=== PATIENT | male | born 1935 | race Caucasian/White ===

== ENCOUNTER 2018-03-16 07:59 | Outpatient (CLI) | payer MEDICARE, OTHER ==
[~2018-03-16] VITALS: Ht 180.3 cm; Wt 90.9 kg
--- NOTE | ~2018-03-16 | HEMODYNAMI ---
PATIENT:CHADD BROOKE JR MEDICAL RECORD: [id number] : 31 LOCATION:[facility] ADMISSION DATE: 03/16/18 Generatedon:03/16/201811:37 Patient name: CHADD BROOKE Patient #: [id number] SSN: [id number] : 1935 Date of study: 03/16/2018 Page: Of Hemodynamic Procedure Report Patient Data Patient Demographics Procedure consent was obtained First Name: CHADD Gender: Male Last Name: EDWARDO Suffix: [facility] Initial: B : 1935 Patient #: [id number] Age: 82 year(s) Race: SSN: [id number] Additional ID: [id number] Contact details Address: [address] [place] [address] State: [place] City: [place] Zip code: [address] Past Medical History Allergies Allergen Reaction Date Comments Reported Other allergy 03/16/2018 Morphine, Sulfa, Iodine Admission Admission Data Admission Date: 03/16/2018 Admission Time: 7:59 Arrival Date: 03/16/2018 Arrival Time: 10:00 Admit Source: Other Insurance Payor: Medicare Height (in.): 73 BSA: 2.15 (m2) Height (cm.): 185.42 BMI: 26.25 (kg/m2) Weight (lbs.): 199 Weight (kg.): 90.26 Lab Results Lab Result Date: 03/16/2018 Lab Result Time: 9:00 Biochemistry Name Units Result Min Max BUN mg/dl 36 --(----)-* 7 18 Creatinine mg/dl 2.5 --(----)-* 0.6 1.3 CBC Name Units Result Min Max Hematocrit % 37.9 *-(----)-- 42 54 Hemoglobin g/dl 11.5 *-(----)-- 13.5 17.5 Procedure Procedure Types Cath Procedure Diagnostic Procedure PPM/ICD PPM Dual Implant Sedation Charges Moderate Sedation up to 15 minutes Procedure Description Procedure Date Procedure Date: 03/16/2018 Procedure Start Time: 11:36 Procedure Staff Name Function Roman Hernandez MD Performing Physician Randy Lowery RT Monitor Ankita Zavala RT Scrub Sean Murillo RN Nurse Procedure Data Cath Procedure Fluoroscopy Diagnostic fluoroscopy Total fluoroscopy Time: 3.2 time: 3.2 min min Diagnostic fluoroscopy Total fluoroscopy dose: dose: 127.03 mGy 127.03 mGy Contrast Material Contrast Material Type Amount (ml) Visipaque 270 10 Estimated blood loss: 5 ml Procedure Complications No complications Procedure Medications Medication Administration Route Dosage Oxygen NC 2 l/min Lidocaine 1% added to field 20 Ancef (1Gm/50ml NS) I.V.P.B 1 g Ancef Irrigation Topical 1 g (1gm/500ml NS) Versed I.V. 2 mg Fentanyl I.V. 50 mcg Versed I.V. 1 mg Fentanyl I.V. 50 mcg Hemodynamics Rest BSA: 2.15 (m2) HGB: 11.5 (g/dl) O2 Consumption: Estimated: 235.47 (ml/min) O2 Co nsumption indexed: Estimated:109.52 (ml/min/m) Heart Rate: 59 (bpm) Snapshots Pre Cath Intra NCS Post Cath Vital Signs Time Heart Resp SPO2 etCO2 NIBP (mmHg) Rhythm Pain Sedation Rate (ipm) (%) (mmHg) Status Level (bpm) 10:34:48 63 17 100 28.5 186/76(140) NSR 0 (11) 10(A) , No pain 10:39:37 61 16 100 12 175/71(133) NSR 0 (11) 10(A) , No pain 10:44:20 60 15 100 15 138/66(114) NSR 0 (11) 10(A) , No pain 10:50:04 62 14 99 9.7 154/65(114) NSR 0 (11) 10(A) , No pain 10:54:44 65 17 98 155/66(119) NSR 0 (11) 10(A) , No pain 11:00:23 63 15 99 154/67(108) NSR 0 (11) 9(A) , No pain 11:05:01 59 17 98 146/58(113) NSR 0 (11) 9(A) , No pain 11:09:35 75 13 98 151/75(117) NSR 0 (11) 9(A) , No pain 11:14:10 76 14 96 151/73(120) NSR 0 (11) 9(A) , No pain 11:18:40 76 15 98 166/80(130) NSR 0 (11) 9(A) , No pain 11:23:25 59 12 99 162/66(120) NSR 0 (11) 10(A) , No pain 11:28:02 69 14 99 151/78(98) NSR 0 (11) 10(A) , No pain 11:32:34 73 13 99 166/82(106) NSR 0 (11) 10(A) , No pain Medications Time Medication Route Dose Verified Delivered Reason Notes Effectiv eness by by 10:42:12 Ancef I.V.P.B 1 g Roman Buffie used for (1Gm/50ml David Murillo surveillance manager NS) 10:45:51 Oxygen NC 2 Roman Buffie used for l/min David Murillo surveillance manager 10:46:02 Lidocaine added 20ml Roman Buffie for local 1% to vial David Murillo RN anesthetic field x2 MD 10:46:17 Ancef Topical 1 g Roman Buffie used for Irrigation Robertored Murillo surveillance manager (1gm/500ml MD NS) 10:49:32 Versed I.V. 2 mg Roman Buffie for Norred Murillo RN sedation 10:51:39 Fentanyl I.V. 50 Roman Buffie for mcg David Murillo RN sedation 10:57:31 Versed I.V. 1 mg Roman Buffie for Norred Murillo RN sedation 10:57:36 Fentanyl I.V. 50 Roman Buffie for mcg Norred Murillo RN sedation Procedure Log Time Note 10:12:12 Informed consent obtained and on chart 10:12:16 Admit Source: Other 10:13:44 Diagnostic Cath status Elective 10:13:46 Sean Murillo RN sent for patient. Start room use. 10:13:58 Time tracking: Regular hours (M-F 7:00 - 5:00) 10:14:05 Plan of Care:Hemodynamics will remain stable., Cardiac rhythm will remain stable., Comfort level will be maintained., Respiratory function will remain adequate., Patient/ family verbilizes understanding of procedure., Procedure tolerated without complication., Recovers from procedure without complications.. 10:17:51 Patient received from Pre/Post Procedure Room to CCL 3 Alert and oriented. Tansferred to table in Supine position. 10:17:52 Warm blankets applied, and piero hugger turned on for patient comfort. 10:17:52 Correct patient and procedure confirmed by team. 10:17:53 ECG and BP/O2 sat monitors applied to patient. 10:19:16 Patient Height : 73 inches 10:19:30 Patient Weight : 199 lbs 10:19:30 Insurance Payor : Medicare 10:19:33 Arrival Date: 03/16/2018 10:00:00 AM 10:33:14 Baseline sample Acquired. 10:33:14 Vital chart was started 10:33:27 Rhythm: sinus rhythm 10:33:38 Full Disclosure recording started 10:33:49 H&P Date Dictated: 03/15/2018 Within 30 days and on chart., H&P Addendum completed by physician on day of procedure. (MUST COMPLETE FOR ALL OUTPATIENTS). 10:33:49 Pre-procedure instructions explained to patient. 10:33:51 Pre-op teaching completed and patient verbalized understanding. 10:33:52 Family in waiting room. 10:33:53 Patient NPO since Midnight. 10:34:08 Patient allergic to Other allergyMorphine, Sulfa, Iodine 10:34:10 Is the patient allergic to Iodine/contrast media? Yes. 10:34:10 Was the patient premedicated? Yes 10:34:12 Is patient on blood thinner?No 10:34:13 Patient diabetic? No. 10:34:34 Previous problem with sedation/anesthesia? Yes Difficulty breathing 10:34:36 Snore? Yes 10:34:37 Sleep apnea? No 10:34:38 Deviated septum? No 10:34:39 Opens mouth fully? Yes 10:34:40 Sticks out tongue? Yes 10:34:44 Airway obstruction? Yes COPD 10:34:46 Dentures? No ? 10:34:54 Patient pain scale 0/10 ?. 10:34:57 IV patent on arrival in right hand with 0.9% NaCl at KVO. 10:35:04 IV started by Sean Murillo RN inleft antecubital with a 22 gauge IV catheter with 0.9% NaCl at KVO. 10:39:39 Lab Result : BUN 36 mg/dl 10:39:39 Lab Result : Hemoglobin 11.5 g/dl 10:39:39 Lab Result : Creatinine 2.5 mg/dl 10:39:39 Lab Result : Hematocrit 37.9 % 10:39:41 Lab results completed and on chart. 10:39:45 Left chest area was prepped with chlora-prep and draped in sterile fashion 10:39:58 Medtronic district representative Marshall Berry present for procedure. 10:40:08 Pre sharps counted by scrub and verified by RN: Sutures: 2; Sponges: 5; Stick needles: 4; Skin needles: 2; Blade: 1; Cautery: 1 10:40:11 Grounding pad site Right thigh. 10:40:15 Grounding pad site free from injury. 10:40:23 Use device set NORRED PPM 10:40:27 2-0 Vicryl Plus [id number] opened to sterile field. 10:40:27 2-0 Silk 685H opened to sterile field. 10:40:29 Cautery Tip Superintendent [employer] Power opened to sterile field. 10:40:30 Cautery Pushbutton Pencil opened to sterile field. 10:40:31 Stapler Skin 35W Proximate Plus (PMW35) opened to sterile field. 10:40:32 Tegaderm 4 x 4 (1626W) opened to sterile field. 10:40:34 MICROPUNCTURE 4FR Lecere ([id number]) opened to sterile field. 10:40:43 MICROPUNCTURE 4FR Lecere ([id number]) opened to sterile field. 10:41:01 Medtronic Advisa MRI PPM Dual Generator [id number] opened to sterile field. 10:41:20 Medtronic 4074-52 PPM Lead opened to sterile field. 10:41:21 Medtronic 5076-45 PPM Lead opened to sterile field. 10:41:30 Alarms reviewed by R. N. 10:41:31 Sharps counted by scrub and verified by R.N. 10:42:12 Ancef (1Gm/50ml NS) 1 g I.V.P.B was administered by Sean Murillo RN; used for procedure; 10:45:46 IV CATHETER 22g opened to sterile field. 10:45:51 Oxygen 2 l/min NC was administered by Sean Murillo RN; used for procedure; 10:46:02 Lidocaine 1% 20ml vial x2 added to field was administered by Sean Murillo RN; for local anesthetic; 10:46:17 Ancef Irrigation (1gm/500ml NS) 1 g Topical was administered by Sean Murillo RN; used for procedure; 10:47:45 Physician arrived 10:47:46 --------ALL STOP TIME OUT------ 10:47:46 Final Timeout: patient, procedure, and site verified with staff and physician. All members of the team are in agreement. 10:47:49 Left chest site verified by team. 10:47:52 Physical assessment completed. ASA score P 2 - A patient with mild systemic disease as per Roman Hernandez MD. 10:47:55 Sedation plan: IV Moderate Sedation Medication:Versed, Fentanyl 10:49:32 Versed 2 mg I.V. was administered by Sean Murillo RN; for sedation; 10:51:39 Fentanyl 50 mcg I.V. was administered by Sean Murillo RN; for sedation; 10:52:40 Procedure started. 10:52:40 Lidocaine 1% was administered to left subclavicular area by Roman Hernandez MD . 10:53:12 Incision made to left subclavicular area. 10:54:46 Generator pocket made/opened. 10:57:31 Versed 1 mg I.V. was administered by Sean Murillo RN; for sedation; 10:57:36 Fentanyl 50 mcg I.V. was administered by Sean Murillo RN; for sedation; 11:01:21 Access obtained with 4Fr micropunture. 11:01:30 Access obtained with 4Fr micropunture. 11:05:14 Left subclavian vein accessed with 7Fr Peel Away Sheath. 11:05:18 Left subclavian vein accessed with 7Fr Peel Away Sheath. 11:07:05 Ventricular lead inserted and advanced. 11:07:11 Ventricular lead positioned. 11:09:58 Ventricular lead tested. 11:10:40 Atrial lead inserted and advanced. 11:10:59 Atrial lead positioned. 11:11:04 Atrial lead tested. 11:19:47 Peel-a-way sheath was split and removed. 11:19:48 Peel-a-way sheath was split and removed. 11:20:06 Atrial lead attachment was completed with 2-0 silk. 11:20:08 Ventricular lead attachment was completed with 2-0 silk. 11:28:15 PPM Dual was inserted subcutaneously to left chest. ::28 Subcutaneous closure was completed with 2-0 vicryl. ::45 Skin closure was completed with 35mm [place]. 11:28:51 Procedure ended.(Physican Out) 11::42 Fluoroscopy time 03.20 minutes. 11::47 Flurop Dose total: 127.03 11::47 Fluoroscopy dose: 127.03 mGy 11:29:50 Contrast amount:Visipaque 270 10ml. 11:29:51 Sharps counted by scrub and verified by R.N. 11:30:36 Parameters-- Generator: Mode: DDDR. Lower Rate: 60bpm. Upper Rate: 110bpm. 11:30:59 Parameters--Atrial P/R Wave: ?mV. Current: ?mA; Threshold: ?V; Impedence: 651OHMS. 11:31:16 Parameters--Ventricular P/R Wave: 0.5mV. Current: 0.5mA; Threshold: 0.6V; Impedence: 1181OHMS. 11:31:20 Lt Chest incision was dressed with gauze eyepad and tegaderm. 11:31:38 Post left subclavian vein:stable, soft, clean and dry 11:31:39 Post Procedure Pulses reassessed and unchanged 11:31:41 Post-procedure physical assessment completed. ASA score P 2 - A patient with mild systemic disease as per Roman Hernandez MD. 11:31:45 Post procedure rhythm: paced 11:34:03 Estimated blood loss: 5 ml 11:34:04 Post procedure instruction explained to patient.Patient verbalizes understanding. 11:34:05 Patient needs reinforcement of post procedure teaching. 11:34:53 Procedure type changed to Cath procedure, Diagnostic procedure, PPM/ICD, PPM Dual Implant, Sedation Charges, Moderate Sedation up to 15 minutes 11:35:42 Procedure and supply charges have been captured, reviewed, submitted and are correct. 11:35:44 Procedure Complication : No complications 11:35:46 Vital chart was stopped 11:35:47 See physician's report for complete and final results. 11:35:48 Report given to Pre/Post Procedure Room. 11:35:50 Patient transfered to Pre/Post Procedure Room with Stretcher. 11:36:08 End room use (Document Last) Device Usage Item Name Manufacture Quantity Catalog Hospital Part Current [facility] Lot# / Serial# Number Charge Number Stock Stock Code 2-0 Vicryl Ethicon 1 [id number] [id number] 701803 784266 5 Plus [id number] 2-0 Silk 685H Ethicon 1 685H 035916 58104 [id number] 5 Cautery Tip Microtek 1 [id number] 338486 005723 896902 5 [employer] Cautery Microtek 1 [id number] 704946 97600 277989 5 Pushbutton [employer] Pencil Stapler Skin Unknown 1 PMW35 737462 626898 961150 5 35W Proximate Plus (PMW35) Tegaderm 4 x 3M 1 1626W 494268 765549 783984 5 4 (1626W) MICROPUNCTURE Lecere [facility] 2 [id number] 037124 336851 304393 5 4FR Lecere (W81698) Medtronic Medtronic 1 A2DR01 005024 499191 5 SN:[id number] Advisa MRI EXP:2019-05-20 PPM Dual Generator A2DR01 Medtronic Medtronic 1 4074-52 576345 [id number] 5 SN:[id number] 4074-52 PPM EXP:2019-10-14 Lead Medtronic Medtronic 1 5076-45 911068 [id number] 5 [id number] 5076-45 PPM EXP:2019-11-18 Lead IV CATHETER B. Wang 1 [id number] 225034 [id number] 781989 5 22g Signature Audit [place] Stage Time Signature Unsigned Intra-Procedure 03/16/2018 Randy Lowery 11:37:36 AM RT(R) Signatures Monitor : Randy Lowery RT Signature : Date : Time : [facility] [address] [place] [place] [address]
[2018-03-16 09:05] LABS: HEMATOCRIT 37.9 % (42.0-54.0); HEMOGLOBIN 11.5 g/dL (13.5-17.5); MCH 31.1 pg (26.0-34.0); MCHC 30.3 g/dL (31.0-37.0); MCV 102.4 fL (80.0-100.0); MEAN PLATELET VOLUME 10.6 fL (7.4-10.4); RBC 3.7 10x6/uL (4.20-6.10); RDW 15.2 % (11.5-14.5); WBC 6.2 10x3/uL (4.8-10.8)
[2018-03-16 09:12] LABS: ANION GAP 13.7 mmol/L (8-16); CALCIUM 8.6 mg/dL (8.5-10.1); CARBON DIOXIDE 23.1 mmol/L (21.0-32.0); CREATININE - SERUM 2.5 mg/dL (0.6-1.3); POTASSIUM - SERUM 5.8 mmol/L (3.5-5.1)
[2018-03-16 09:14] VITALS: BP 156/53; Ht 180.3 cm; Wt 90.9 kg
[2018-03-16] MEDS ORDERED: ZYRTEC10 MG PO (09:35)
[2018-03-16] MEDS ORDERED: WELLBUTRIN XL150 M1 PO (09:35)
[2018-03-16] MEDS ORDERED: LEVOXYL75 MCG PO (09:36)
[2018-03-16] MEDS ORDERED: LISINOPRIL-HCTZ1 T13 PO (09:37)
[2018-03-16] MEDS ORDERED: FLOMAX0.4 MG PO (09:38)
[2018-03-16] MEDS ORDERED: LIPITOR40 MG PO (09:38)
[2018-03-16] MEDS ORDERED: ARICEPT23 MG PO (09:38)
[2018-03-16] MEDS ORDERED: ADVAIR 250/501 DISK INH (09:39)
[2018-03-16] MEDS ORDERED: STOOL SOFTENER100 M1 PO (09:39)
[2018-03-16] MEDS ORDERED: HYDROCODONE-APA1 TAB PO (09:39)
[2018-03-16] MEDS ORDERED: IBUPROFEN200 MG (09:39)
[2018-03-16] MEDS ORDERED: XALATAN 0.0052.5 ML EACH EYE (09:39)
[2018-03-16] MEDS ORDERED: FOLBIC RF TABL1 EACH PO (09:40)
[2018-03-16] MEDS ORDERED: MELATONIN10 M1 PO (09:40)
[2018-03-16] MEDS ORDERED: XANAX0.5 MG PO (09:40)
[2018-03-16] MEDS ORDERED: BAYER CHEWABLE81 MG PO (09:40)
[2018-03-16 09:59] LABS: APTT 37.4 SECONDS (22.8-39.4); INR 1.07 (0.85-1.17); PROTIME 13.5 SECONDS (11.6-15.0)
[2018-03-16] MEDS ORDERED: ELIQUIS5 MG PO (11:35)
[2018-03-16] MEDS ORDERED: KEFLEX500 MG PO (11:35)
[2018-03-16] MEDS ORDERED: COUMADIN5 MG PO (12:02)
== END 2018-03-16 17:00 | disposition home or self-care (01) ==
LOC: D.CATH 07:59
PROVIDERS: Internal Medicine Cardiovascular Disease
DX: I44.2 Atrioventricular block, complete (principal); I10 Essential (primary) hypertension; E78.5 Hyperlipidemia, unspecified; I48.91 Unspecified atrial fibrillation; Z01.812 Encounter for preprocedural laboratory examination

== ENCOUNTER 2018-04-04 09:59 | Inpatient (IN) | payer MEDICARE, OTHER ==
[~2018-04-04] VITALS: Ht 180.3 cm; Wt 90.9 kg
--- NOTE | ~2018-04-04 | DS ---
PATIENT:CHADD BROOKE JR :31 MEDICAL RECORD: [id number] DISCHARGE SUMMARY ADMISSION DATE: 04/04/18 DISCHARGE DATE: 04/08/18 DISCHARGE DIAGNOSES: 1. Atrial fibrillation. 2. DC cardioversion. 3. Pacemaker. 4. Sick sinus syndrome. 5. Pacemaker pocket revision. 6. Renal insufficiency. 7. Coronary artery disease. HOSPITAL COURSE: This is a gentleman, who presents for DC cardioversion, was found to have [id number] renal insufficiency as well as dehiscence of his pacemaker pocket. He was hydrated. His lisinopril was stopped. His renal function improved. He had revision of the pacemaker pocket by Dr. Howell and DC cardioversion. He maintained sinus rhythm. We will discharge home. Follow up with [facility] in 1 month. TRANSINT:[id number] Voice Confirmation ID: [id number] DOCUMENT ID: [id number] SANDRA TORRES MD at 1403 CC: [id number] DICTATION DATE: 04/08/18 0903 PAINT STOCK CLERK: 04/09/18 1023 DIS IN 04/08/18 [facility] [address] [place] [address]
--- NOTE | ~2018-04-04 | OP ---
PATIENT NAME: CHADD BROOKE JR MEDICAL RECORD: [id number] :31 LOCATION:D.M2 D.2128 ADMISSION DATE:04/04/18 SURGEON: DERIC ALVAREZ MD DATE OF OPERATION: 04/07/2018 SURGEON: Deric Alvarez MD RECOVERY AUDITOR: KOLE Stoddard OPERATION PERFORMED: 1. Synchronized cardioversion. 2. Pacemaker pocket debridement and placement of cellular matrix. PREOPERATIVE DIAGNOSES: Atrial fibrillation, pacemaker pocket wound dehiscence and hematoma. POSTOPERATIVE DIAGNOSES: Atrial fibrillation, pacemaker pocket wound dehiscence and hematoma. ANESTHESIA: General and intravenous sedation. SPECIMENS: Culture. CONDITION: Stable. FINDINGS: Clotted blood within the pocket and placement of the cellular matrix device after soaking in vancomycin and gentamicin. PROCEDURE IN DETAIL: The patient was brought to the operating suite. General intravenous sedation given synchronized cardioversion 200 joules successful and interrogated by the pacemaker environmental marketing representative for [employer]. The chest was prepped and draped. The old incision was opened. The pacemaker generator was carefully removed and the pacemaker suture sleeves had 1 suture. An additional suture was placed on each one. Thorough irrigation was undertaken and all bits of the old clotted blood was removed back to a level that appeared to be good granulating tissue. Hemostasis was ensured. Vancomycin was used in the pocket. The cellular matrix device was brought into the field and soaked for less than 2 minutes and vancomycin and gentamicin solution as per protocol. Then, the pacemaker generator placed within the pocket. The pocket and generator carefully placed within the chest wound and sutured in 2 sites. The wound was then closed with subcutaneous and clips. The tissue was quite poor and indurated. The pressure dressing was applied and the patient was taken to recovery in stable condition. TRANSINT:[id number] Voice Confirmation ID: [id number] DOCUMENT ID: [id number] OPERATIVE REPORT [id number] CHADD BROOKE JR, DANIEL W MD at 1141 CC: SANDRA TORRES and MORIAH LEO V [id number] DICTATION DATE: 04/07/18 1823 BUGGY OPERATOR: 04/08/18 0102 DIS IN 04/08/18 [place] [address] [place] [address]
[~2018-04-04 09:59] MED LIST: ADVAIR 250/501 DISK INH; ARICEPT23 MG PO; BAYER CHEWABLE81 MG PO; COUMADIN5 MG PO; ELIQUIS5 MG PO; FLOMAX0.4 MG PO; FOLBIC RF TABL1 EACH PO; HYDROCODONE-APA1 TAB PO; IBUPROFEN200 MG; KEFLEX500 MG PO; LEVOXYL75 MCG PO; LIPITOR40 MG PO; LISINOPRIL-HCTZ1 T13 PO; MELATONIN10 M1 PO; STOOL SOFTENER100 M1 PO; WELLBUTRIN XL150 M1 PO; XALATAN 0.0052.5 ML EACH EYE; XANAX0.5 MG PO; ZYRTEC10 MG PO
[2018-04-04] MEDS ORDERED: BETAPACE 80 MG80 MG PO (10:21)
[2018-04-04] MEDS ORDERED: ADVAIR 250/501 DISK INH (10:22)
[2018-04-04 10:31] VITALS: BP 127/50; BMI 27.9
[2018-04-04 10:57] LABS: BASOPHILS 0.8 % (0-2); EOSINOPHILS 5.1 % (0-7); HEMATOCRIT 39.4 % (42.0-54.0); HEMOGLOBIN 11.7 g/dL (13.5-17.5); IMMATURE GRANULOCYTES 0.2 % (0-5); LYMPHOCYTES 18.7 % (15-50); MCH 30.5 pg (26.0-34.0); MCHC 29.7 g/dL (31.0-37.0); MCV 102.6 fL (80.0-100.0); MEAN PLATELET VOLUME 11.2 fL (7.4-10.4); MONOCYTES 8.6 % (2-11); NEUTROPHILS 66.6 % (40-80); PLATELET COUNT 132 10x3/uL (130-400); RBC 3.84 10x6/uL (4.20-6.10); RDW 16.2 % (11.5-14.5); WBC 6.5 10x3/uL (4.8-10.8)
[2018-04-04 11:22] LABS: ANION GAP 18.8 mmol/L (8-16); CALCIUM 8.5 mg/dL (8.5-10.1); CARBON DIOXIDE 17.2 mmol/L (21.0-32.0); CREATININE - SERUM 3.6 mg/dL (0.6-1.3)
[2018-04-04 11:57] LABS: INR 2.72 (0.85-1.17); PROTIME 28.2 SECONDS (11.6-15.0)
[2018-04-05 05:34] LABS: HEMATOCRIT 35.1 % (42.0-54.0); HEMOGLOBIN 10.7 g/dL (13.5-17.5); MCH 30.8 pg (26.0-34.0); MCHC 30.5 g/dL (31.0-37.0); MCV 101.2 fL (80.0-100.0); MEAN PLATELET VOLUME 10.4 fL (7.4-10.4); RBC 3.47 10x6/uL (4.20-6.10); WBC 5.9 10x3/uL (4.8-10.8)
[2018-04-05 06:02] VITALS: BP 119/53; BMI 26.0
[2018-04-05 07:46] LABS: CALCIUM 8.2 mg/dL (8.5-10.1); CARBON DIOXIDE 18.2 mmol/L (21.0-32.0); CREATININE - SERUM 2.9 mg/dL (0.6-1.3)
[2018-04-05 08:05] LABS: INR 3.52 (0.85-1.17); PROTIME 34.5 SECONDS (11.6-15.0)
[2018-04-05 08:06] LABS: ANION GAP 14.7 mmol/L (8-16)
[2018-04-05 08:07] LABS: POTASSIUM - SERUM 6.9 mmol/L (3.5-5.1)
[2018-04-05 08:22] VITALS: BP 125/47
[2018-04-05 12:09] VITALS: BP 135/49
[2018-04-05 16:16] VITALS: BP 143/54
[2018-04-05 16:36] LABS: ANION GAP 15.2 mmol/L (8-16); CALCIUM 8.7 mg/dL (8.5-10.1); CARBON DIOXIDE 20.6 mmol/L (21.0-32.0); CREATININE - SERUM 2.9 mg/dL (0.6-1.3)
[2018-04-05 16:40] LABS: POTASSIUM - SERUM 6.8 mmol/L (3.5-5.1)
[2018-04-05 21:49] LABS: CALCIUM 8.3 mg/dL (8.5-10.1); CARBON DIOXIDE 19.9 mmol/L (21.0-32.0); CREATININE - SERUM 2.8 mg/dL (0.6-1.3); POTASSIUM - SERUM 5.9 mmol/L (3.5-5.1)
[2018-04-05 22:01] VITALS: BP 146/51
[2018-04-06 01:03] VITALS: BP 121/49
[2018-04-06 06:36] LABS: HEMATOCRIT 32.1 % (42.0-54.0); HEMOGLOBIN 9.7 g/dL (13.5-17.5); MCHC 30.2 g/dL (31.0-37.0); MCV 99.4 fL (80.0-100.0); MEAN PLATELET VOLUME 11.1 fL (7.4-10.4); RBC 3.23 10x6/uL (4.20-6.10); RDW 16.1 % (11.5-14.5); WBC 4.7 10x3/uL (4.8-10.8)
[2018-04-06 07:00] VITALS: BP 152/62
[2018-04-06 07:09] LABS: APTT 46.3 SECONDS (22.8-39.4); PROTIME 20.3 SECONDS (11.6-15.0)
[2018-04-06 07:10] LABS: INR 1.8 (0.85-1.17)
[2018-04-06 07:20] LABS: ANION GAP 18.8 mmol/L (8-16); CARBON DIOXIDE 17.3 mmol/L (21.0-32.0); CREATININE - SERUM 2.5 mg/dL (0.6-1.3); POTASSIUM - SERUM 5.1 mmol/L (3.5-5.1)
[2018-04-06 11:33] LABS: ANION GAP 16.3 mmol/L (8-16); CARBON DIOXIDE 18.5 mmol/L (21.0-32.0); CREATININE - SERUM 2.4 mg/dL (0.6-1.3); POTASSIUM - SERUM 4.8 mmol/L (3.5-5.1)
[2018-04-06 13:03] VITALS: BP 128/68
[2018-04-06 13:43] VITALS: Ht 180.3 cm; Wt 90.9 kg
[2018-04-06 16:39] VITALS: BP 142/52
[2018-04-06 20:00] VITALS: BP 149/55
[2018-04-07] VITALS: BP 151/63
[2018-04-07 04:00] VITALS: BP 140/63
[2018-04-07 05:10] LABS: PROTIME 16.5 SECONDS (11.6-15.0)
[2018-04-07 05:25] LABS: INR 1.38 (0.85-1.17)
[2018-04-07 09:01] VITALS: BP 133/59
[2018-04-07 12:17] VITALS: BP 147/65
[2018-04-07 17:56] VITALS: BP 151/80
[2018-04-07 20:00] VITALS: BP 130/47
[2018-04-08] VITALS: BP 154/68
[2018-04-08 04:00] VITALS: BP 148/68
[2018-04-08 08:21] VITALS: BP 142/61
[2018-04-08 08:27] VITALS: BP 142/67
[2018-04-08 11:46] VITALS: BP 132/59
[2018-04-08 12:16] VITALS: BP 132/59
== END 2018-04-08 12:41 | disposition home or self-care (01) | DRG 908 ==
LOC: D.CATH 09:59 → D.M2 19:10 → D.CATH 19:11 → D.M2 19:12
PROVIDERS: Internal Medicine Interventional Cardiology; Internal Medicine Nephrology; Thoracic Surgery (Cardiothoracic Vascular Surgery)
PROC: 0JWT3PZ Revision of Cardiac Rhythm Related Device in Trunk Subcutaneous Tissue and Fascia, Percutaneous Approach (ICD-10-PCS; principal; 2018-04-07 10:30)
DX: T81.30XA Disruption of wound, unspecified, initial encounter (principal); N17.9 Acute kidney failure, unspecified; Y83.8 Other surgical procedures as the cause of abnormal reaction of the patient, or of later complication, without mention of misadventure at the time of the procedure; I12.9 Hypertensive chronic kidney disease with stage 1 through stage 4 chronic kidney disease, or unspecified chronic kidney disease; N18.9 Chronic kidney disease, unspecified; E87.5 Hyperkalemia; N40.0 Benign prostatic hyperplasia without lower urinary tract symptoms; E03.9 Hypothyroidism, unspecified; I25.10 Atherosclerotic heart disease of native coronary artery without angina pectoris; I48.91 Unspecified atrial fibrillation

== ENCOUNTER 2018-04-30 09:27 | Inpatient (IN) | payer MEDICARE, OTHER ==
[~2018-04-30] VITALS: Ht 180.3 cm; Wt 88.0 kg
[2018-04-30] VITALS (19 sets, daily range): BP systolic 128–178; BP diastolic 39–95
--- NOTE | ~2018-04-30 | CN ---
PATIENT NAME:CHADD BROOKE JR MEDICAL RECORD: [id number] : 31 LOCATION:D. D.2115 ADMIT DATE: 04/30/18 ACCOUNT: [id number] CONSULTING PHYSICIAN: ERASMO LUBIN MD REFERRING PHYSICIAN: MIC GALLARDO MD DATE OF CONSULTATION: 05/01/2018 CONSULT REQUESTING PHYSICIAN: Tim Eden MD REASON FOR CONSULTATION: Acute exacerbation of COPD and congestive heart failure. HISTORY OF PRESENT ILLNESS: Mr. Brooke is an 82-year-old gentleman. Now, he is very confused and the history was taken by talking to the patient's . The patient is not feeling well for the last few days. He was confused. He had a fall and could not perform his activities of daily living. The patient was brought into the ER for dyspnea and orthopnea and they found out the patient was hypoxic. The patient was put on 15 liters oxygen and BiPAP. Now, he is feeling a little bit better. He was diuresed. The patient was also hyperkalemic with acute renal failure. REVIEW OF THE SYSTEMS: As in history of present illness. PAST MEDICAL HISTORY: 1. COPD. 2. History of pneumonia. 3. History of coronary artery disease. 4. History of aortic aneurysm. 5. Congestive heart failure. 6. Cancer of the lower lip. 7. Anxiety, depression. PAST SURGICAL HISTORY: 1. He had CABG. 2. He had aortic aneurysm repair. 3. Cholecystectomy. 4. Appendectomy. 5. Carotid endarterectomy. ALLERGIES: ALLERGIC TO SULFA, AMIODARONE, MORPHINE, IODINATED CONTRAST. MEDICATIONS: Utan was reviewed. PERSONAL AND SOCIAL HISTORY: The patient is . He lives with his . He just quit smoking 2 months ago, now using electronic cigarette. FAMILY HISTORY: Noncontributory. PHYSICAL EXAMINATION: GENERAL: Now, the patient is lying comfortably in bed. He is not in acute distress. VITAL SIGNS: The blood pressure is 149/59, pulse is 59 and irregular, respiration is 18, temperature is 98.2, SpO2 on 15 liters oxymizer is 100%. HEENT: Conjunctivae are pink. Sclerae are not icteric. NECK: Neck is supple. Elevated JVD. CONSULT REPORT [id number] CHADD BROOKE JR CHEST: There are bilateral crackles. There is associated wheezing. HEART: Rhythm regular. Normal sound. No murmur. ABDOMEN: Abdomen is soft. Bowel sounds present. No hepatosplenomegaly. RECTAL: Deferred. EXTREMITIES: No cyanosis. No clubbing. There is 2+ pedal edema. SKIN: The skin is warm. Normal turgor. CENTRAL NERVOUS SYSTEM: The patient is awake and alert, but the patient is confused. IMAGING DATA: Chest radiograph showed bilateral pulmonary edema. There is no consolidation. OTHER LABORATORY DATA: CBC; the WBC is 11.9, hemoglobin 10.4, hematocrit 35.2, the platelet count is 160. Chemistry: Sodium 145; potassium was 5.9, now down to 5; BUN is 30; creatinine 2.5; glucose 96. ABG; the pH was 7.31, pCO2 was 40.8, bicarb was 20.8. The ABG improved to pH of 7.32, pCO2 of 47, pO2 of 253, bicarb 24.7. The troponin level was 0.64. IMPRESSION: 1. Acute hypoxic respiratory failure. 2. Acute pulmonary edema. 3. Acute exacerbation of congestive heart failure. 4. Coronary artery disease with elevated troponin. 5. Mpvbb-bu-dbnnpem kidney disease. 6. Dyspnea. 7. Ex-smoker. 8. Atrial fibrillation. 9. Hyperkalemia. 10. Acute mental status changes. RECOMMENDATIONS: 1. Continue Lasix IV. 2. Albuterol/ipratropium nebulizer. Start budesonide nebulizer. 3. Lasix IV. 4. Supplemental oxygen decreased with SpO2 to 91% to 92%. 5. Continue empiric Rocephin. 6. BiPAP at night as required. 7. Followup labs and chest radiograph. Dr. Eden, thank you for involving me in the care of Mr. Brooke. TRANSINT:[id number] Voice Confirmation ID: [id number] DOCUMENT ID: [id number] ERASMO LUBIN MD at 1218 CC: [id number] DICTATION DATE: 05/01/18 1630 SYSTEM ANALYST: 05/01/18 1721 ADM IN [facility] [address] [place] [address]
--- NOTE | ~2018-04-30 | EC ---
PATIENT:CHADD BROOKE JR DATE OF SERVICE: 04/30/18 SEX: M MEDICAL RECORD: [id number] DATE OF : 31 LOCATION:D.M2 D.211 AGE OF PATIENT: 82 ADMISSION DATE: 04/30/18 REFERRING PHYSICIAN: INTERPRETING PHYSICIAN: JANES REINOSO MD ECHOCARDIOGRAM REPORT ECHO CHARGES 4 ECHO COMPLETE Date: 05/01 CLINICAL DIAGNOSIS: CHF HX OF PACER/CAD/CABG ECHOCARDIOGRAPHIC MEASUREMENTS (adult normal given) AC root (d.<3.7cm) 3.9 cm LV Septum d (<1.2 cm> 1.4 cm Valve Excursion 1.8 cm LV Septum (systole) 1.8 cm Left Atria (s.<4.0cm> 4.8 cm LVPW d(<1.2cm) 1.6 cm RV (d.<2.3cm) 5.3 cm LVPW (sytole) 1.9 cm LV diastole(<5.6CM) 6.4 cm MV E-F(>70mm/sec) cm LV systole 4.6 cm LVOT Diameter 1.5 cm MV exc.(>10mm) 0.9 cm Est.ejection fraction (50-75%) % DOPPLER: LVIT cm/sec A 129 cm/sec E 148 cm/sec LA cm/sec RVSP 38 mmHg LVOT 97 cm/sec AOP1/2T 554 m/s Asc. Ao 272 cm/sec RVOT 100 cm/sec RA cm/sec PA 132 cm/sec AV Gradient Peak 29.51mmHg AV Mean 21.01mmHg AV Area 1.0 cm MV Gradient Peak 12.91mmHg MV Mean 3.28 mmHg MV Area cm COMMENTS: Auction Assistant: 2 SHAHRZAD ERWIN Dairy Equipment Installer: 4 Dr. Reinoso TAPE# PACS Pericardial Effusion N DATE OF SERVICE: FINDINGS: 1. Left ventricle has mild concentric left ventricular hypertrophy. Inflow characteristics appear to have diastolic dysfunction. 2. The left ventricular cavity is mildly dilated. 3. The right ventricle is moderately to severely dilated with mild lateral hypokinesis. 4. The left atrium is moderately dilated. 5. Aortic valve is grossly normal. There is mild and mild AI. Mitral valve ECHOCARDIOGRAM REPORT [id number] CHADD BROOKE JR has mild mitral regurgitation. 6. Tricuspid valve has mild tricuspid regurgitation. RVSP is 38 mmHg. 7. The right atrium is moderately dilated. CONCLUSIONS: The patient has mild dilated cardiomyopathy with ejection fraction of 50% to 55%, evidence of left ventricular hypertrophy and diastolic dysfunction grade 3. The patient is shown to have a pacer artifact into the right ventricle. TRANSINT:[id number] Voice Confirmation ID: [id number] DOCUMENT ID: [id number] JANES REINOSO MD at 0927 CC: [id number] DICTATION DATE: 05/02/18828 ADDICTIONS RECOVERY SPECIALIST: 05/02/18 1236 ADM IN [facility] [address] [place] [id number]
[~2018-04-30 09:27] MED LIST changes: +BETAPACE 80 MG80 MG PO
[2018-04-30 10:21] LABS: BASOPHILS 0.3 % (0-2); EOSINOPHILS 2.6 % (0-7); HEMATOCRIT 39.3 % (42.0-54.0); HEMOGLOBIN 11.6 g/dL (13.5-17.5); IMMATURE GRANULOCYTES 0.2 % (0-5); LYMPHOCYTES 7.8 % (15-50); MCH 29.8 pg (26.0-34.0); MCHC 29.5 g/dL (31.0-37.0); MEAN PLATELET VOLUME 12.2 fL (7.4-10.4); MONOCYTES 6.2 % (2-11); NEUTROPHILS 82.9 % (40-80); RBC 3.89 10x6/uL (4.20-6.10); RDW 16.3 % (11.5-14.5); WBC 9.4 10x3/uL (4.8-10.8)
[2018-04-30 10:32] LABS: PLATELET COUNT 134 10x3/uL (130-400)
[2018-04-30 10:34] LABS: APTT 40.4 SECONDS (22.8-39.4); INR 1.38 (0.85-1.17); PROTIME 16.5 SECONDS (11.6-15.0)
[2018-04-30 10:35] LABS: D-DIMER-QUANTITATIVE 1.75 ug/mLFEU (0.20-0.54)
[2018-04-30 10:57] LABS: ALBUMIN 3.4 g/dL (3.4-5.0); ALKALINE PHOSPHATASE 150 U/L (46-116); ALT (SGPT) 16 U/L (10-68); CALC OSMOLALITY 290 mosm/kg (275-300); CALCIUM 8.5 mg/dL (8.5-10.1); CHLORIDE - SERUM 112 mmol/L (98-107); CREATININE - SERUM 2.1 mg/dL (0.6-1.3); GLUCOSE 109 mg/dL (74-106); POTASSIUM - SERUM 5.9 mmol/L (3.5-5.1); PROTEIN - SERUM 6.4 g/dL (6.4-8.2); SODIUM 144 mmol/L (136-145); UREA NITROGEN 21 mg/dL (7-18); eGFR NON AFRICAN AMERICAN 32 mL/min (90-120)
[2018-04-30 11:08] LABS: CKMB 1.1 U/L (0.0-3.6); CREATINE KINASE 48 UL (21-232); PRO BNP 5500 pg/mL (0-450); TROPONIN-I 0.017 ng/mL (0.000-0.060)
[2018-04-30] MEDS ORDERED: ELIQUIS5 MG PO (11:47)
[2018-04-30 11:51] LABS: APPEARANCE CLEAR (CLEAR); BILIRUBIN NEGATIVE (NEGATIVE); COLOR YELLOW (YELLOW); GLUCOSE NEGATIVE (NEGATIVE); KETONE NEGATIVE (NEGATIVE); NITRITE NEGATIVE (NEGATIVE); PROTEIN NEGATIVE (NEGATIVE); UROBILINOGEN NORMAL (NORMAL)
[2018-04-30 11:59] LABS: BACTERIA MODERATE /hpf (NONE SEEN); EPITHELIAL CELLS 0-5 /hpf (0-5); HYALINE CAST OCC /lpf (NONE SEEN); MUCUS <1+ /lpf (NONE SEEN); WHITE CELLS - URINE 0-5 /hpf (0-5)
[2018-05-01] VITALS (7 sets, daily range): BP systolic 122–158; BP diastolic 42–59; Ht 180.3 cm; Wt 88.0 kg
[2018-05-01 05:42] LABS: BASOPHILS 0.1 % (0-2); EOSINOPHILS 0.5 % (0-7); HEMATOCRIT 35.2 % (42.0-54.0); HEMOGLOBIN 10.4 g/dL (13.5-17.5); IMMATURE GRANULOCYTES 0.3 % (0-5); LYMPHOCYTES 10.2 % (15-50); MCH 28.9 pg (26.0-34.0); MCHC 29.5 g/dL (31.0-37.0); MCV 97.8 fL (80.0-100.0); MEAN PLATELET VOLUME 11.1 fL (7.4-10.4); MONOCYTES 8.7 % (2-11); NEUTROPHILS 80.2 % (40-80); PLATELET COUNT 116 10x3/uL (130-400); WBC 11.9 10x3/uL (4.8-10.8)
[2018-05-01 05:59] LABS: ANION GAP 11.8 mmol/L (8-16); CALCIUM 8.5 mg/dL (8.5-10.1); CARBON DIOXIDE 26.2 mmol/L (21.0-32.0); CREATININE - SERUM 2.5 mg/dL (0.6-1.3); MAGNESIUM - SERUM 1.7 mg/dL (1.8-2.4); PHOSPHOROUS 3.5 mg/dL (2.5-4.9)
[2018-05-01] MEDS ORDERED: KLONOPIN0.5 MG PO (13:35)
[2018-05-02 01:09] VITALS: BP 137/48
[2018-05-02 06:01] LABS: BASOPHILS 0.2 % (0-2); EOSINOPHILS 2.9 % (0-7); HEMATOCRIT 34.6 % (42.0-54.0); HEMOGLOBIN 10.4 g/dL (13.5-17.5); IMMATURE GRANULOCYTES 0.2 % (0-5); LYMPHOCYTES 10.7 % (15-50); MCH 29.1 pg (26.0-34.0); MCHC 30.1 g/dL (31.0-37.0); MCV 96.9 fL (80.0-100.0); MEAN PLATELET VOLUME 12.2 fL (7.4-10.4); MONOCYTES 9.7 % (2-11); NEUTROPHILS 76.3 % (40-80); PLATELET COUNT 125 10x3/uL (130-400); RBC 3.57 10x6/uL (4.20-6.10); RDW 16.2 % (11.5-14.5)
[2018-05-02 06:05] VITALS: BP 133/49
[2018-05-02 06:38] LABS: ALBUMIN 2.6 g/dL (3.4-5.0); ANION GAP 12.3 mmol/L (8-16); BILIRUBIN - TOTAL 0.6 mg/dL (0.2-1.3); CALCIUM 8.4 mg/dL (8.5-10.1); CREATININE - SERUM 2.5 mg/dL (0.6-1.3); POTASSIUM - SERUM 4.3 mmol/L (3.5-5.1); THYROID STIMULATING HORMONE 0.14 uIU/mL (0.36-3.74)
[2018-05-02 17:23] VITALS: BP 100/45
[2018-05-02 20:43] VITALS: BP 124/55
[2018-05-03 00:28] VITALS: BP 113/47
[2018-05-03 04:44] VITALS: BP 137/50
[2018-05-03 05:41] LABS: BASOPHILS 0.3 % (0-2); EOSINOPHILS 4.9 % (0-7); HEMATOCRIT 33.5 % (42.0-54.0); HEMOGLOBIN 10.2 g/dL (13.5-17.5); IMMATURE GRANULOCYTES 0.3 % (0-5); LYMPHOCYTES 15.1 % (15-50); MCH 29.1 pg (26.0-34.0); MCHC 30.4 g/dL (31.0-37.0); MCV 95.7 fL (80.0-100.0); MEAN PLATELET VOLUME 11.8 fL (7.4-10.4); MONOCYTES 10.9 % (2-11); NEUTROPHILS 68.5 % (40-80); PLATELET COUNT 120 10x3/uL (130-400); RDW 15.8 % (11.5-14.5); WBC 7.6 10x3/uL (4.8-10.8)
[2018-05-03 06:17] LABS: ANION GAP 11.5 mmol/L (8-16); CARBON DIOXIDE 28.8 mmol/L (21.0-32.0); CREATININE - SERUM 2.5 mg/dL (0.6-1.3); POTASSIUM - SERUM 4.3 mmol/L (3.5-5.1)
[2018-05-03 08:07] VITALS: BP 117/47
[2018-05-03 12:19] VITALS: BP 124/51
[2018-05-03 15:50] VITALS: BP 128/64
[2018-05-03 20:10] VITALS: BP 137/46
[2018-05-04 00:58] VITALS: BP 123/51
[2018-05-04 05:34] VITALS: BP 141/54
[2018-05-04 08:20] VITALS: BP 142/53
[2018-05-04 11:44] VITALS: BP 147/62
== END 2018-05-04 16:32 | DRG 291 ==
LOC: D.ER 09:27 → D.M2 12:01 → D.EDHOLD 12:01 → D.M2 13:10 → D.EDHOLD 14:28 → D.M2 20:22
PROVIDERS: Family Medicine
DX: I13.0 Hypertensive heart and chronic kidney disease with heart failure and stage 1 through stage 4 chronic kidney disease, or unspecified chronic kidney disease (principal); J96.01 Acute respiratory failure with hypoxia; I50.31 Acute diastolic (congestive) heart failure; J44.1 Chronic obstructive pulmonary disease with (acute) exacerbation; N17.9 Acute kidney failure, unspecified; N39.0 Urinary tract infection, site not specified; N18.9 Chronic kidney disease, unspecified; F41.9 Anxiety disorder, unspecified; F32.9 Major depressive disorder, single episode, unspecified; I25.10 Atherosclerotic heart disease of native coronary artery without angina pectoris; I48.91 Unspecified atrial fibrillation; E87.5 Hyperkalemia

== ENCOUNTER 2018-05-04 15:44 | Inpatient (IN) | payer MEDICARE, OTHER ==
[~2018-05-04] VITALS: Ht 180.3 cm; Wt 86.2 kg
--- NOTE | ~2018-05-04 | RHP ---
PATIENT: CHADD BROOKE JR MEDICAL RECORD: [id number] ACCOUNT: [id number] LOCATION:[id number] : 31 ADMISSION DATE: 05/04/18 REHABILITATION HISTORY AND PHYSICAL EXAMINATION POST ADMISSION PHYSICIAN EXAMINATION DATE OF ADMISSION: 05/04/2018 ADMITTING DIAGNOSIS: Disuse myopathy. HISTORY OF PRESENT ILLNESS: The patient is an 82-year-old gentleman who is admitted to inpatient rehab with disuse myopathy. He presented into the hospital with increasing shortness of breath, cough, swelling, frequent falls, loss of ADLs, increased weakness, acute mental status change, dyspnea, orthopnea, gurgling and gasping sounds when he would breathe as well as rigors and chills. He is found to be hypoxic. The patient placed on 15 liters of O2 via BiPAP. He was also hyperkalemic in acute renal failure. He was found to be in congestive heart failure in the Emergency Room where he was having also components of comorbid conditions including contributing to his decompensation. He progressively gotten weaker over the past few weeks prior to his acute hospital admit on 04/30/2018. He got a past medical history of CHF, hypertension, [place], coronary artery disease, coronary artery bypass grafting, chronic kidney disease, pacemaker placement, COPD, constipation. A 2 to 3 days prior to his acute hospital admit, he got so weak that he was unable to get up and ambulate. He lives at home with his who is his main caregiver. He is moderately independent with use of single point cane, but states was getting to where he would need a rolling walker. He is moderately independent to independent with ADLs. He has proximal muscle weakness with difficulty rising bed to chair. He has been weaned down to 2 liters of O2 p.r.n. He is on telemetry, has a Johnson catheter. He has been diuresed during his acute hospital stay. His mentation has slowly cleared. He is currently set at max assist for ADLs and moderate assist to max assist for mobility, he and his family plan for him to return home after he gets out of the inpatient rehab hopefully to his prior level of functioning or possibly better. COMORBIDITIES: Include COPD, respiratory failure, dysphagia, pulmonary edema, exacerbation of CHF, ex-smoker, atrial fib, hyperkalemia, acute mental status changes, hypertension, chronic kidney disease, and weakness. PAST MEDICAL HISTORY: Significant for COPD, pneumonia, coronary artery disease, aortic aneurysm, congestive heart failure, cancer of the lower lip, anxieties, allergies, cataracts, emphysema, hyperactive thyroid, migraines, constipation, arthritis, chronic back pain, right knee pain, right shoulder replacement, psoriasis, prostate problems, depression. PAST SURGICAL HISTORY: Includes coronary bypass grafting, aortic aneurysm, cholecystectomy, appendectomy, left carotid endarterectomy, hemorrhoidectomy, right shoulder replacement and removal of some lumbar calcifications. ALLERGIES: CARDIOLITE, SULFA, MORPHINE, IV DYE AND AMIODARONE. CURRENT MEDICATIONS: Include folic acid daily. He is on Flomax 0.4 mg daily, Synthroid 75 mcg daily, Colace 100 mg daily, Claire 60 mg daily, Wellbutrin 150 mg daily, atorvastatin 40 mg daily, aspirin chewable 81 mg daily, polyethylene glycol 17 grams in 8 ounces of water daily, Betapace 80 mg b.i.d., melatonin 10 HISTORY AND PHYSICAL [id number] CHADD BROOKE JR mg at bedtime, Xalatan eye drops at bedtime, Advil 200 mg every 6 hours p.r.n., [place] 10/325 one tab every 4 hours p.r.n., Advair 250/50 one inhalation b.i.d., Aricept 20 mg at bedtime, Klonopin 0.5 mg twice a day, Xanax 0.5 mg every 12 hours p.r.n. HABITS: He does have a history of tobacco use. FAMILY HISTORY: Noncontributory. SOCIAL HISTORY: The patient hopes to be able to return home with his and get back to his prior level of functioning. REVIEW OF SYSTEMS: GENERAL: He does complain of weakness and fatigue. HEENT: He denies cold, cough, or congestion. CARDIOVASCULAR: He denies chest pain. PHYSICAL EXAMINATION: VITAL SIGNS: Stable, afebrile. GENERAL: Elderly gentleman in no acute distress, alert upon exam. HEENT: Normocephalic and atraumatic. Mucosa moist. NECK: Supple. No lymphadenopathy. LUNGS: Clear at this time. HEART: Irregular rate and rhythm. ABDOMEN: Benign. EXTREMITIES: No clubbing, cyanosis or edema. NEUROLOGIC: He is slow to mentate. He does have noted proximal muscle weakness. LABORATORY DATA: White count 6.3, H&H of 10 and 33.2. His platelet count is noted to be 109. Sodium is 145, potassium 4.0, BUN and creatinine of 35 and 2.0 and blood sugar is noted to be 120. ASSESSMENT: This is an 82-year-old gentleman admitted to the rehab with a working diagnosis of disuse myopathy. The patient has potential to make improvement. We instituted the following multidisciplinary therapies including, but not limited to physical, occupational, respiratory, speech, nutritional services, prosthetics and orthotics. Given his complex medical condition and risk for more complications, rehabilitation services cannot be provided at a low level of care such as [facility] facility. PLAN: 1. Admit to [facility] for inpatient therapy to include the following disciplines: A. Physical therapy to improve gait, all transfer skills and bed mobility to a modified independent level. B. Occupational therapy to improve activities of daily living to a modified independent level. C. Case management to assist with discharge planning and placement options. D. Nutrition to assist with nutritional needs. E. Rehabilitation nursing to assist in monitoring the patient's underlying medical conditions and to assist with any type of bowel or bladder management. 2. The patient's current medication and medical care will be continued. 3. The patient will be placed on standard fall precautions. 4. The patient's estimated length of stay is approximately 7-10 days. HISTORY AND PHYSICAL [id number] CHADD BROOKE JR 5. Discuss this patient during care team staff meeting this week. TRANSINT:[id number] Voice Confirmation ID: [id number] DOCUMENT ID: [id number] 05/18/18 Edited for dakota CONNOR. GEETA notes whether there has been none or any medical/functional change since admission: - No change since preadmission screen. GEETA attests patient continues to be appropriate for IRF: - Continues to be appropriate. KITTY CHAN MD at 2041 CC: [id number] DICTATION DATE: 05/05/18 0848 ENGAGEMENT LEAD: 05/05/18 1007 DIS IN 05/11/18 [place] [address]
[~2018-05-04 15:44] MED LIST changes: +KLONOPIN0.5 MG PO
[2018-05-04 16:59] VITALS: BP 168/73; BMI 26.5
[2018-05-04 19:00] VITALS: BP 149/46
[2018-05-05 06:56] LABS: BASOPHILS 0.6 % (0-2); EOSINOPHILS 7.7 % (0-7); HEMATOCRIT 33.2 % (42.0-54.0); HEMOGLOBIN 10.1 g/dL (13.5-17.5); IMMATURE GRANULOCYTES 0.3 % (0-5); LYMPHOCYTES 21.2 % (15-50); MCH 28.9 pg (26.0-34.0); MCHC 30.4 g/dL (31.0-37.0); MCV 95.1 fL (80.0-100.0); MEAN PLATELET VOLUME 11.1 fL (7.4-10.4); MONOCYTES 12.3 % (2-11); NEUTROPHILS 57.9 % (40-80); PLATELET COUNT 109 10x3/uL (130-400); RBC 3.49 10x6/uL (4.20-6.10); RDW 15.9 % (11.5-14.5); WBC 6.3 10x3/uL (4.8-10.8)
[2018-05-05 07:25] LABS: ANION GAP 14.3 mmol/L (8-16); CALCIUM 8.5 mg/dL (8.5-10.1); CARBON DIOXIDE 25.7 mmol/L (21.0-32.0)
[2018-05-05 08:03] VITALS: BP 158/61
[2018-05-05 13:49] VITALS: Ht 180.3 cm; Wt 86.2 kg
[2018-05-05 19:00] VITALS: BP 142/61
[2018-05-06 08:30] VITALS: BP 159/57
[2018-05-06 20:30] VITALS: BP 142/51
[2018-05-07 10:37] VITALS: BP 159/60
[2018-05-08 06:28] LABS: BASOPHILS 0.4 % (0-2); EOSINOPHILS 4.6 % (0-7); HEMATOCRIT 32.2 % (42.0-54.0); HEMOGLOBIN 9.6 g/dL (13.5-17.5); IMMATURE GRANULOCYTES 0.1 % (0-5); LYMPHOCYTES 18.8 % (15-50); MCH 28.2 pg (26.0-34.0); MCHC 29.8 g/dL (31.0-37.0); MCV 94.7 fL (80.0-100.0); MEAN PLATELET VOLUME 11.7 fL (7.4-10.4); MONOCYTES 8.3 % (2-11); NEUTROPHILS 67.8 % (40-80); RDW 15.8 % (11.5-14.5); WBC 6.7 10x3/uL (4.8-10.8)
[2018-05-08 06:40] LABS: ANION GAP 13.2 mmol/L (8-16); CALCIUM 8.4 mg/dL (8.5-10.1); CARBON DIOXIDE 26.3 mmol/L (21.0-32.0); CREATININE - SERUM 2.1 mg/dL (0.6-1.3); POTASSIUM - SERUM 4.5 mmol/L (3.5-5.1)
[2018-05-08 06:52] LABS: PLATELET COUNT 132 10x3/uL (130-400)
[2018-05-08 08:00] VITALS: BP 123/50
[2018-05-08 19:00] VITALS: BP 130/40
[2018-05-09 08:42] VITALS: BP 152/63
[2018-05-09 19:00] VITALS: BP 144/50
[2018-05-10 07:32] LABS: BASOPHILS 0.7 % (0-2); EOSINOPHILS 4.7 % (0-7); HEMATOCRIT 34.8 % (42.0-54.0); HEMOGLOBIN 10.5 g/dL (13.5-17.5); IMMATURE GRANULOCYTES 0.1 % (0-5); LYMPHOCYTES 19.5 % (15-50); MCH 28.7 pg (26.0-34.0); MCHC 30.2 g/dL (31.0-37.0); MCV 95.1 fL (80.0-100.0); MEAN PLATELET VOLUME 11.7 fL (7.4-10.4); MONOCYTES 7.1 % (2-11); NEUTROPHILS 67.9 % (40-80); RBC 3.66 10x6/uL (4.20-6.10); RDW 15.5 % (11.5-14.5); WBC 6.9 10x3/uL (4.8-10.8)
[2018-05-10 07:38] LABS: PLATELET COUNT 173 10x3/uL (130-400)
[2018-05-10 07:47] LABS: CALCIUM 9.1 mg/dL (8.5-10.1); CARBON DIOXIDE 27.1 mmol/L (21.0-32.0); CREATININE - SERUM 2.3 mg/dL (0.6-1.3); POTASSIUM - SERUM 5.1 mmol/L (3.5-5.1)
[2018-05-10 08:00] VITALS: BP 140/56
[2018-05-10 19:00] VITALS: BP 149/53
[2018-05-11 08:00] VITALS: BP 132/59
[2018-05-11] MEDS ORDERED: ELIQUIS2.5 MG PO (12:47)
== END 2018-05-11 14:14 | disposition home health service (06) | DRG 91 ==
LOC: D.REHAB 15:44
PROVIDERS: Emergency Medicine
DX: G72.89 Other specified myopathies (principal); J96.90 Respiratory failure, unspecified, unspecified whether with hypoxia or hypercapnia; I13.0 Hypertensive heart and chronic kidney disease with heart failure and stage 1 through stage 4 chronic kidney disease, or unspecified chronic kidney disease; J81.1 Chronic pulmonary edema; J44.1 Chronic obstructive pulmonary disease with (acute) exacerbation; N18.9 Chronic kidney disease, unspecified; I50.9 Heart failure, unspecified; Z87.891 Personal history of nicotine dependence; I48.91 Unspecified atrial fibrillation; E87.5 Hyperkalemia; R53.1 Weakness; R41.82 Altered mental status, unspecified; R13.12 Dysphagia, oropharyngeal phase